=== PATIENT | female | born 1940 | race Caucasian/White ===

== ENCOUNTER 2023-08-09 17:21 | Outpatient (REF) | payer MEDICARE, SELFPAY ==
[2023-08-09 21:30] LABS: Anion Gap 7.5 mmol/L (3-11); BUN 13 mg/dL (7-18); CO2 27.5 mmol/L (21.0-32.0); CREATININE 0.9 mg/dL (0.55-1.02); Calcium 9.2 mg/dL (8.5-10.1); Calculated LDL 108 mg/dL (<100); Chloride 95 mmol/L (98-107); Cholesterol 193 mg/dL (<200); Estimated GFR 63.43 (mL/min/1.73m2); Glucose 102 mg/dL (74-106); HDL Cholesterol 63 mg/dL (40-60); Potassium 4.2 mmol/L (3.5-5.1); Sodium 130 mmol/L (136-145); Triglyceride 112 mg/dL (<150)
[2023-08-09 21:31] LABS: Hemoglobin A1C 5.5 % (<5.7)
== END 2023-08-09 17:22 | disposition home or self-care (01) ==
LOC: NCHCN 17:21
PROVIDERS: Visit Provider Nurse Practitioner Family
DX: I10 Essential (primary) hypertension (principal); E78.5 Hyperlipidemia, unspecified; R73.03 Prediabetes; E66.9 Obesity, unspecified
CPT/HCPCS: 80048; 80061; 83036

== ENCOUNTER 2024-05-23 16:32 | Outpatient (REF) | payer MEDICARE, SELFPAY ==
[2024-05-23 21:40] LABS: HGB 12.7 g/dL (11.2-15.7); MCH 30.6 pg (27.0-33.0); MCHC 34.3 % (32.0-36.0); MCV 89 fL (80-95); MPV 9.9 fL (8.0-11.0); Platelet Count 277 10^3/uL (130-400); RBC 4.15 10^6/uL (3.93-5.22); RDW 13.1 % (11.7-14.6); RDW-SD 42.6 fL; WBC 7.51 10^3/uL (4.4-10.8)
[2024-05-23 21:51] LABS: ALT 21 U/L (14-59); AST 22 U/L (15-37); Albumin 3.6 g/dL (3.4-5.0); Alkaline Phosphatase 65 U/L (46-116); Anion Gap 6.6 mmol/L (3-11); BUN 9 mg/dL (7-18); Bilirubin, Total 0.35 mg/dL (0.2-1.0); CO2 26.4 mmol/L (21.0-32.0); CREATININE 0.9 mg/dL (0.55-1.02); Calcium 8.8 mg/dL (8.5-10.1); Chloride 103 mmol/L (98-107); Estimated GFR 63.43 (mL/min/1.73m2); Glucose 105 mg/dL (74-106); Potassium 4.6 mmol/L (3.5-5.1); Sodium 136 mmol/L (136-145); Total Protein 7.2 g/dL (6.4-8.2)
[2024-05-23 22:09] LABS: D-Dimer 876 ng/mlFEU (<500)
== END 2024-05-23 16:33 | disposition home or self-care (01) ==
LOC: NCHCN 16:32
PROVIDERS: Visit Provider Nurse Practitioner Family
DX: R22.42 Localized swelling, mass and lump, left lower limb (principal)
CPT/HCPCS: 80053; 85027; 85379